=== PATIENT | female | born 1975 | race African-American/Black ===

== ENCOUNTER 2024-09-09 16:55 | Observation (INO) | payer BC, OTHER ==
[2024-09-09] MEDS ORDERED: ASPIRIN 81 MG CHEWABLE TABLETS ONE (18:28)
[2024-09-09] MEDS: ASPIRIN 81 MG CHEWABLE TABLETS PO ONE (18:37)
[2024-09-09 18:49] LABS: ABSOLUTE IMMATURE GRANULOCYTES 0.02 x10^3/uL (0.0-0.031); BASOPHILS # 0.01 x10^3/uL (0.01-0.08); EOSINOPHIL % 0.7 % (0.7-5.8); EOSINOPHILS # 0.04 x10^3/uL (0.04-0.36); HEMATOCRIT 39.8 % (34.1-44.9); HEMOGLOBIN 12.8 g/dL (11.2-15.7); MCHC 32.2 g/dl (32.2-35.5); MEAN CELL VOLUME 75.7 fl (79.4-94.8); MEAN PLT VOLUME 13.6 fl (9.4-12.3); MONOCYTE # 0.35 x10^3/uL (0.24-0.86); MONOCYTE % 6.1 % (4.7-12.5); PLATELET COUNT 164 x10^3/uL (182-369); POTASSIUM 3.7 mmol/L (3.5-5.1); RDW 13.7 % (12.2-17.1)
[2024-09-09 18:51] LABS: ALBUMIN 4.3 g/dl (3.4-5.0); CALCIUM 10.2 mg/dL (8.5-10.1)
[2024-09-09 18:52] LABS: BLOOD UREA NITROGEN 11.7 mg/dL (7-18)
[2024-09-09 18:55] LABS: CREATININE 0.9 mg/dL (0.55-1.3)
[2024-09-09 18:56] LABS: BILIRUBIN,TOTAL 0.7 mg/dL (0.2-1); TOT PROT 7.9 g/dl (6.4-8.2)
[2024-09-09] MEDS: LISINOPRIL 10 MG TABLET PO ONE (22:31)
[2024-09-09 23:56] VITALS: BMI 28.1
[2024-09-10] MEDS: diphenhydrAMINE HCL 25 MG CAPSULE (FP) PO ONE (00:21)
[2024-09-10 08:01] LABS: BASOPHILS # 0.01 x10^3/uL (0.01-0.08); EOSINOPHIL % 1.8 % (0.7-5.8); EOSINOPHILS # 0.06 x10^3/uL (0.04-0.36); HEMATOCRIT 40.2 % (34.1-44.9); HEMOGLOBIN 12.8 g/dL (11.2-15.7); MCHC 31.8 g/dl (32.2-35.5); MEAN CELL VOLUME 75.6 fl (79.4-94.8); MONOCYTE # 0.33 x10^3/uL (0.24-0.86); MONOCYTE % 9.8 % (4.7-12.5); PLATELET COUNT 173 x10^3/uL (182-369); RDW 13.6 % (12.2-17.1)
[2024-09-10 08:33] LABS: CALCIUM 9.8 mg/dL (8.5-10.1)
[2024-09-10 08:34] LABS: MAGNESIUM 2.3 mg/dL (1.8-2.4)
[2024-09-10 08:37] LABS: CREATININE 0.9 mg/dL (0.55-1.3)
[2024-09-10] MEDS: HYDROXYCHLOROQUINE SO4 200 MG TABLET (FP) PO SCH (09:41)
[2024-09-10] MEDS: LISINOPRIL 10 MG TABLET PO SCH (09:42)
[2024-09-10] MEDS: ASPIRIN 81 MG CHEWABLE TABLETS PO SCH (09:42)
[2024-09-10] MEDS: FOLIC ACID 1 MG TABLET (FP) PO SCH (09:42)
[2024-09-10] MEDS: ACETAMINOPHEN 500 MG TABLET (FP) PO PRN (17:34)
[2024-09-10] MEDS: DOCUSATE SODIUM 100 MG CAPSULE (FP) PO PRN (22:27)
[2024-09-10 22:34] VITALS: RESP 18
[2024-09-11 15:12] VITALS: BP 128/83; PULSE 97; TEMP 97.4
[2024-09-12] MEDS ORDERED: LISINOPRIL 10 MG TABLET PO SCH (10:00)
[2024-09-12] MEDS ORDERED: LISINOPRIL 5 MG TABLET PO SCH (10:00)
== END 2024-09-11 16:55 | disposition home or self-care (01) ==
LOC: JER 16:55 → JERBED 20:15 → J4S 22:07
PROVIDERS: ADMIT Family Medicine; ATTEND Family Medicine
DX: R07.89 Other chest pain (principal); I10 Essential (primary) hypertension; M32.9 Systemic lupus erythematosus, unspecified; D69.6 Thrombocytopenia, unspecified; M06.9 Rheumatoid arthritis, unspecified; D25.9 Leiomyoma of uterus, unspecified
CPT/HCPCS: 36415; 71046-TC-FY; 76705-TC; 78452-TC; 80048; 80053; 82607; 82728; 83540; 83550; 83690; 83735; 84466; 84484; 85025; 93005; 93010; 93017; 93306-TC; 99285-25; A9502; G0378